=== PATIENT | female | born 1980 | race Caucasian/White ===

== ENCOUNTER 2025-02-02 07:26 | Outpatient (CLI) | payer BC, SELFPAY ==
--- NOTE | ~2025-02-02 | CT_ITS ---
CT of the Abdomen and Pelvis: Indication: Fatty liver Technique: 2.5 mm axial scans were obtained through the abdomen and pelvis prior to and following in travenous administration of 100 cc of Omnipaque 350. Dose reduction technique was used on this scan b y utilizing automated exposure control and iterative reconstruction technique. The dose-length produc t (DLP) was 868.65 mGy-cm. Findings: Scans through the lung bases demonstrate 8mm medial right lower lobe pulmonary nodule (axi al image 18). Probable mild diffuse hepatic steatosis. The spleen, pancreas, gallbladder, adrenals and kidneys are within normal limits. No evidence of aortic aneurysm. No lymphadenopathy. No bowel obstruction or bowel wall thickening. There is no evidence to suggest acute appendicitis. Images through the pelvis were performed. Urinary bladder unremarkable. No pelvic mass seen. No ascit es. Impression: Mild diffuse fatty infiltration of liver. 8 mm right lower lobe pulmonary nodule, indeterminate. Recommend either 3 month follow-up CT scan, PE T/CT, or possibly attempted tissue sampling. Reviewed, dictated and finalized at location . Impression: Mild diffuse fatty infiltration of liver. 8 mm right lower lobe pulmonary nodule, indeterminate. Recommend either 3 month follow-up CT scan, PET/CT, or possibly attempted tissue sampling.
== END 2025-02-02 07:27 | disposition home or self-care (01) ==
LOC: ANHIMG 07:36
PROVIDERS: Visit Provider Nurse Practitioner Family
DX: K76.0 Fatty (change of) liver, not elsewhere classified (principal); R91.1 Solitary pulmonary nodule
CPT/HCPCS: 74178; Q9967

== ENCOUNTER 2025-03-13 07:13 | Outpatient (CLI) | payer BC, SELFPAY ==
--- NOTE | ~2025-03-13 | NM_ITS ---
EXAMINATION: NM_HEPATWE_NM DATE: 03/13/2025 09:58 INDICATION: Epigastric pain COMPARISON: None. TECHNIQUE: 5.5 mCi Tc-99m mebrofenin (Choletec) was administered intravenously. Scintigraphic images of the abdomen were obtained for one hour. At the 1 hour time point, the patient drank 8 oz Ensure, and imaging was continued for 60 minutes. Gallbladder ejection fraction was calculated by the technol ogist. FINDINGS: There is normal clearance of radiotracer from the blood pool. There is homogeneous tracer u ptake by the liver. Activity progresses to the bowel and gallbladder. The gallbladder ejection fract ion (GBEF) is 84%. Note that with this technique, normal GBEF >= 33%. IMPRESSION: 1. Normal hepatobiliary scan. Reviewed, dictated and finalized at location A.
--- OUTSIDE RECORDS SUMMARY | 2025-03-13 07:16 | XMS_ITS | Encounter Summary ---
Author Organization [facility] Address [facility] [place] [address] Care Team Providers Care Storeroom Attendant Name Role Phone Jose Cherry MD Primary Care Provider [phone] Encounter Details Date Type Department Care Team (Late st Contact Info) Description 02/08/2019 Abstract SFL CONVERSION [address] [place] [address] , Generic Conversion, Social History Tobacco Use Types Packs/Day Years Used Date Smoking Tobacco: Never Assessed Comments Unknown Sex and Gender Information Value Date Recorded Sex Assigned at Not on file 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
--- OUTSIDE RECORDS SUMMARY | 2025-03-13 07:16 | XMS_ITS | Clinical Summary ---
Author Organization [facility] Address [address] [place] [address] Care Team Providers Care Tuber Machine Cutter Name Role Phone Jose Cherry MD Primary Care Provider [phone] Allergies No known active allergies Medications omeprazole 40 MG capsule Take 40 mg by mouth daily. 01/11/2021 Active FLUoxetine 20 MG capsule Take 20 mg by mouth daily. 01/07/2021 Active DAYSEE 0.15-0.03 &0.01 MG tablet Take 1 tablet by mouth daily. 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 Gender Identity Not on file Sexual Orientation Not on file Last Filed Vital Signs Vital Sign Reading Time Taken Comments Blood Pressure 118/62 04/29/2021 11:30 AM CDT Pulse 91 04/29/2021 11:30 AM CDT Temperature 35.7 C (96.3 F) 04/29/2021 11:30 AM CDT Respiratory Rate 20 04/29/2021 11:30 AM CDT Oxygen Saturation 100% 04/29/2021 11:30 AM CDT Inhaled Oxygen Concentration - - Weight 76.2 kg (168 lb) 04/22/2021 9:05 AM CDT Height 162.6 cm (5' 4) 04/22/2021 9:05 AM CDT Body Mass Index 28.84 04/22/2021 9:05 AM CDT Plan of Treatment Health Maintenance Due Date Last Done Comments Cervical Cancer Screening Pap Smear (Age 30 to 64) Every 3 Years 1980 Annual Physical 1983 Hepatitis C 1998 DTaP, Tdap and Td Vaccines (1 - Tdap) 1999 03/26/1986, 04/12/1982, 01/21/1981, Additional history exists Hepatitis B Vaccines (1 of 3 - 19+ 3-dose series) 1999 Cervical Cancer Screening Pap with HPV Testing (Age 30 to 64) Every 5 Years 2010 Cervical Cancer Screening with HPV 2010 Mammogram Screening 2020 COVID-19 Vaccine ( season) 2024 10/12/2020, 09/14/2020 HPV Vaccines Aged Out No longer eligi ble based on patient's age to complete this topic Meningococcal B Vaccine Aged Out No l onger eligible based on patient's age to complete this topic Meningococcal Vaccine Aged Out No parviz akanksha eligible based on patient's age to complete this topic Pneumococcal Vaccine: Pediatrics (0 to 5 Years) and At-Risk Patients (6 to 49 Years) Aged Out No longer eligible based on patient's age to complete this topic RSV Immunizations Under 20 Months Aged Out No longer eligible based on patient's age to complete this topic Insurance * Guarantor: Katelyn Jordan Account Type Relation to Patient Date of Phone Billing Address Personal/Family Self 1980 [address] [place] [address] [facility] Advance Directives * Full Code (Latest Code Status on File) Date Activated Date Inactivated Comments 04/29/2021 10:53 AM 04/29/2021 2:44 PM Care Teams Tuber Machine Cutter Relationship Specialty Start Date End Date Jose Cherry MD [address] [place] [id number] PCP - General FAMILY PRACTICE 10/24/19
== END 2025-03-13 07:14 | disposition home or self-care (01) ==
PROVIDERS: Visit Provider Nurse Practitioner Family
DX: R10.13 Epigastric pain (principal)
CPT/HCPCS: 78226; A9537